=== PATIENT | female | born 1990 | race Caucasian/White ===

== ENCOUNTER 2021-11-27 15:10 | Outpatient (CLI) | payer MEDICAID, SELFPAY ==
[2021-11-27 16:40] LABS: Absolute Lymphocyte Count 2.43 X10^3/uL (0.83-4.51); Basophil# 0.07 X10^3/uL; Basophil% 0.7 % (0-1); Eosinophil# 0.21 X10^3/uL; Eosinophils% 2.2 % (0-5); Hematocrit 41.8 % (37-47); Hemoglobin 14.3 g/dL (12.0-15.0); Lymphocyte # 2.43 X10^3/ul (0.83-4.51); Lymphocyte % 25.9 % (19-41); Mean Corp Hgb Conc 34.2 g/dL (32-36); Mean Corpuscular Hgb 29.9 pg (27.0-32.0); Mean Corpuscular Volume 87.4 fL (81-99); Mean Platelet Vol. 11.2 fl (6.2-12.0); Monocyte% 6.4 % (0-10); NRBC Flagged by Analyzer 0 % (0-5); Neutrophil # 6.03 X10^3/uL (2.7-7.7); Neutrophil % 64.5 % (47-70); Platelet Count 331 K/mm3 (150-450); RBC Distribution Width CV 12.3 % (11.6-14.6); RBC Distribution Width SD 39.7 fl (35.1-43.9); Red Blood Count 4.78 M/mm3 (4.2-5.4); White Blood Count 9.4 K/mm3 (4.4-11.0)
[2021-11-27 17:20] LABS: ALB/GLOB Ratio 1.1 RATIO (0.9-2.4); AST(SGOT) 33 U/L (15-37); Alanine Aminotransfer ALT/SGPT 67 U/L (13-56); Albumin, Serum 3.9 g/dL (3.2-5.0); Alkaline Phosphatase 81 U/L (45-117); Anion Gap 6 (5-15); BUN 10 mg/dL (7-18); BUN/Creat Ratio 12.9 RATIO (10-20); Calcium,Total 9.1 mg/dL (8.5-10.1); Chloride 104 mmol/L (98-107); Creatinine, Serum 0.77 mg/dL (0.55-1.02); EST Glomerular Filtration Rate 93 mL/min (>60); Est Glom Filt Rate - Afr Amer 112 mL/min (>60); Globulin 3.6 g/dL (2.2-4.2); Glucose 91 mg/dL (74-106); Potassium 3.7 mmol/L (3.5-5.1); Protein, Total 7.5 g/dL (6.4-8.2); Sodium Level 137 mmol/L (136-145); T4 Free Direct 0.91 ng/dL (0.76-1.46); Thyroid Stim Hormone (TSH) 0.92 uIU/mL (0.358-3.74)
== END 2021-11-27 23:59 | disposition short-term general hospital (02) ==
PROVIDERS: PCP Internal Medicine; Referring Provider Internal Medicine; Visit Provider Internal Medicine
DX: Z13.29 Encounter for screening for other suspected endocrine disorder (principal); R63.5 Abnormal weight gain; J03.91 Acute recurrent tonsillitis, unspecified; Z76.89 Persons encountering health services in other specified circumstances
CPT/HCPCS: 36415; 80053; 84439; 84443; 85025

== ENCOUNTER 2021-12-26 09:33 | Outpatient (CLI) | payer MEDICAID, SELFPAY ==
[2021-12-26 12:46] LABS: AST(SGOT) 17 U/L (15-37); Alanine Aminotransfer ALT/SGPT 25 U/L (13-56); Albumin, Serum 3.9 g/dL (3.2-5.0); Alkaline Phosphatase 83 U/L (45-117); Anion Gap 5 (5-15); BUN 8 mg/dL (7-18); BUN/Creat Ratio 10.1 RATIO (10-20); Calcium,Total 9.2 mg/dL (8.5-10.1); Chloride 105 mmol/L (98-107); Creatinine, Serum 0.79 mg/dL (0.55-1.02); EST Glomerular Filtration Rate 91 mL/min (>60); Est Glom Filt Rate - Afr Amer 110 mL/min (>60); Globulin 3.8 g/dL (2.2-4.2); Glucose 91 mg/dL (74-106); Potassium 4.2 mmol/L (3.5-5.1); Protein, Total 7.7 g/dL (6.4-8.2); Sodium Level 137 mmol/L (136-145)
== END 2021-12-26 23:59 | disposition home or self-care (01) ==
LOC: BIMLAB 09:34
PROVIDERS: PCP Internal Medicine; Referring Provider Nurse Practitioner Family; Visit Provider Nurse Practitioner Family
DX: R94.5 Abnormal results of liver function studies (principal)
CPT/HCPCS: 36415; 80053